=== PATIENT | male | born 1995 | race African-American/Black ===

== ENCOUNTER 2018-10-10 16:20 | Emergency (ER) | payer BC, SELFPAY ==
[~2018-10-10 16:20] MED LIST: ISOVUE-370 76%-LOCM 1 ML ONE
[2018-10-10] MEDS ORDERED: Adacel (T-DAP) 0.5 ML VIAL ONE (16:36)
[2018-10-10] MEDS ORDERED: Ondansetron PF 4 MG/2 ML Vial ONE (16:36)
[2018-10-10 17:09] LABS: #Basophils 0.1 thou/uL (0.0-0.2); #Lymphocytes 2.1 thou/uL (1.20-3.40); #Monocytes 0.5 thou/uL (0.11-0.59); #Neutrophils 3.7 thou/uL (1.40-6.50); %Basophils 0.8 % (0.0-1.0); %Eosinophils 0.6 % (0.0-10.0); %Lymphocytes 33.4 % (21.0-51.0); %Neutrophils 58.1 % (42.0-75.0); Hemoglobin 14.1 g/dL (14.0-18.0); Mean Corpuscular HGB CONC 31.9 g/dL (32.0-36.0); Mean Corpuscular Hemoglobin 29.9 pg (27.0-31.0); Mean Corpuscular Volume 93.9 fL (78.0-98.0); Mean Platelet Volume 8.7 fL (7.4-10.4); Platelet Count 160 thou/uL (130-400); RBC Distribution Width 11.2 % (11.5-14.5); Red Blood Cell (RBC) Count 4.72 mill/uL (4.70-6.10); White Blood Cell (WBC) Count 6.4 thou/uL (4.8-10.8)
[2018-10-10 17:19] LABS: INR-International Normal Ratio 1.1; PTT 25.2 SEC (22.9-36.1); Prothrombin Time 13.8 SEC (12.0-14.7)
[2018-10-10 17:30] LABS: ALT (SGPT) 22 U/L (8-55); AST (SGOT) 19 U/L (5-34); Albumin 4.1 g/dL (3.5-5.0); Alkaline Phosphatase 46 U/L (40-150); Anion Gap 13 mmol/L (10-20); BUN (Urea Nitrogen) 11 mg/dL (8.9-20.6); Bilirubin, Total 0.4 mg/dL (0.2-1.2); Calc. Creatinine Clearance 0 mL/min (70-130); Calcium 8.8 mg/dL (7.8-10.44); Carbon Dioxide 22 mmol/L (22-29); Chloride 105 mmol/L (98-107); Estimated GFR-MDRD Greater than 90; Globulin 2.6 g/dL (2.4-3.5); Glucose 97 mg/dL (70-105); Potassium 4.1 mmol/L (3.5-5.1); Protein, Total 6.7 g/dL (6.0-8.3); Sodium 136 mmol/L (136-145)
--- NOTE | 2018-10-10 18:54 | CT ---
NONCONTRAST HEAD CT: 10/10/18 HISTORY: Patient has been kicked in the right side of the head by a horse. Loss of consciousness. COMPARISON: None. FINDINGS: No parenchymal hemorrhage. No extra-axial hematoma. No midline shift. Basilar cisterns are patent. Br ain volume is age appropriate. Cortical olea-white matter differentiation is preserved. Ventricles an d sulci are patent and symmetric. Adequate aeration of the sinuses and mastoid air cells. Calvarium is intact. IMPRESSION: No intracranial posttraumatic sequela. POS: [facility]
--- NOTE | 2018-10-10 19:47 | CT ---
CT CERVICAL SPINE WITHOUT CONTRAST: 10/10/18 HISTORY: Trauma, patient was kicked on the right side of the head and chest by a horse. Loss of consciousness. COMPARISON: None. FINDINGS: There is appropriate alignment of the lateral masses of C1 and C2 as well as the facets. Intact odont oid process. Straightening of normal cervical lordosis may be due to patient position, muscle spasm o r cervical collar. Soft tissue neck structures are unremarkable. There is no prevertebral soft tissue swelling. Upper me diastinum and lung apices are unremarkable. No significant central canal stenosis or significant neural foraminal narrowing. Evaluation is limite d by technique. Cervical spine vertebral body height is maintained. There is no cervical spine fracture. IMPRESSION: No cervical spine fracture. Straightening of the normal cervical lordosis as detailed above. If there is concern for ligamentous injury, consider MRI. POS: [facility]
--- NOTE | 2018-10-10 19:58 | CT ---
FACE CT WITHOUT CONTRAST: 10/10/18 HISTORY: Trauma. Patient was kicked on the right side by a horse. COMPARISON: None. FINDINGS: There is no evidence of facial soft tissue swelling or hematoma. The aerodigestive tract appears to b e patent. There is nonspecific fullness of the adenoid tonsils. Zygomatic arches are intact. Pterygoid plates are intact. The visualized maxillofacial structures do not demonstrate any fracture. Maxilla and mandible do not have any posttraumatic change. Mandibular c ondyles are appropriately located. Visualized upper cervical spine is unremarkable. Bilateral osteomeatal complexes are patent. No irregularity with regards to the osseous margins of th e sinuses or orbits. Bilateral ocular lenses are appropriately located. Both globes are intact. Retro bulbar fat is preserved. Symmetric attenuation of the optic nerves and ocular rectus muscles. IMPRESSION: No posttraumatic changes. POS: [facility]
--- NOTE | 2018-10-10 20:09 | CT ---
CHEST CT WITH CONTRAST ABDOMEN CT WITH CONTRAST PELVIC CT WITH CONTRAST LIMITED CT OF THE THORACIC AND LUMBAR SPINE 10/10/18 HISTORY: Status post trauma. Patient was kicked by a horse. FINDINGS: CHEST CT: No mediastinal mass, lymphadenopathy or hematoma. Heart size is within normal limits. No pericardial fluid. The visualized thoracic and abdominal aorta have a normal caliber. No periaortic fat stranding . No dissection. Trachea and central bronchi are patent. No consolidation or mass. No pleural effusion or pneumothorax . Minimal atelectatic changes in the left lower lobe. ABDOMEN CT: Portal vein is patent. Unremarkable gallbladder. Appropriate enhancement of the solid organs. No evid ence of solid organ injury. No mesenteric mass, lymphadenopathy, free air or free fluid. Limited evaluation of the alimentary can al by the lack of oral contrast. No evidence of bowel obstruction. Ileocecal junction is normal. Norm al caliber appendix. Unremarkable colon. Occasional diverticulum. No diverticulitis. CT PELVIS: No mass, lymphadenopathy, free air or free fluid. Left and right ribs are intact. Bony pelvis is intact. Unremarkable sternum. LIMITED CT OF THE THORACIC AND LUMBAR SPINE: The vertebral body heights are maintained. No fracture or malalignment. IMPRESSION: No posttraumatic sequela in the chest, abdomen or pelvis. POS: [facility]
== END 2018-10-10 18:00 | disposition home or self-care (01) ==
LOC: ERS 16:20
DX: S06.0X9A Concussion with loss of consciousness of unspecified duration, initial encounter (principal); S20.211A Contusion of right front wall of thorax, initial encounter; W55.12XA Struck by horse, initial encounter
CPT/HCPCS: 70450; 70486; 71260; 72125; 74177; 80053; 85025; 85610; 85730; 90471; 90715; 96374; G0390; J2405